=== PATIENT | male | born 1985 | race Caucasian/White ===

== ENCOUNTER → 2019-11-19 | Outpatient (CLI) | payer OTHER ==
[2019-11-19 15:41] LABS: Basophils % (A) 1 %; Eosinophils # (A) 0.3 k/uL (0-0.7); Eosinophils % (A) 4 %; HCT 45.3 % (39.0-53.0); HGB 15.1 gm/dL (13.0-17.5); Lymphocytes # (A) 1.9 k/uL (1.0-4.8); Lymphocytes % (A) 30 %; MCH 29.9 pg (25.0-35.0); MCHC 33.3 g/dL (31.0-37.0); MCV 89.8 fL (80.0-100.0); Mean Platelet Volume 7.4; Monocytes # (A) 0.4 k/uL (0-1.0); Monocytes % (A) 6 %; Neutrophils # (A) 3.5 k/uL (1.3-7.7); Neutrophils % (A) 56 %; Platelet Count 247 k/uL (150-450); RBC 5.04 m/uL (4.30-5.90); RDW 12.5 % (11.5-15.5); WBC 6.3 k/uL (3.8-10.6)
[2019-11-19 16:33] LABS: Erythrocyte Sedimentation Rate 2 mm/hr (0-15)
[2019-11-20 00:41] LABS: Gliadin AB IgA, Deaminated NEGATIVE (NEGATIVE); Gliadin AB IgA, Unit <0.2 U/mL; Gliadin AB IgG, Deaminated NEGATIVE (NEGATIVE)
== END ==
LOC: LABWHC1 14:37
PROVIDERS: ATTEND Internal Medicine Gastroenterology
DX: K58.9 Irritable bowel syndrome, unspecified (principal)
CPT/HCPCS: 36415; 83516; 85025; 85652; 86140

== ENCOUNTER 2021-01-29 18:48 | Inpatient (IN) | payer BC, OTHER ==
[2021-01-29] MEDS ORDERED: ALBUTEROL HFA INHALER INHALATION STA (20:05)
[2021-01-29] MEDS ORDERED: SODIUM CHLORIDE 0.9% 1,000 ML IV STA ×2 (20:05)
[2021-01-29] MEDS ORDERED: DEXAMETHASONE SOD PHOSPHATE 10 MG/ML 1 ML VIAL IV STA (20:06)
--- NOTE | 2021-01-29 20:14 | XR ---
EXAMINATION TYPE: XR chest 2V DATE OF EXAM: 01/29/2021 COMPARISON: NONE HISTORY: Hypoxemia. Short of breath TECHNIQUE: 2 views FINDINGS: There is patchy bilateral infiltrate and atelectasis in the mid and lower lung bryant. Ther e is poor inspiration. Heart size is normal. IMPRESSION: Bilateral pneumonia and atelectasis. Normal heart.
[2021-01-29 21:16] LABS: Basophils % (A) 1 %; Eosinophils % (A) 0 %; HCT 43.2 % (39.0-53.0); HGB 15.7 gm/dL (13.0-17.5); Lymphocytes # (A) 1.3 k/uL (1.0-4.8); Lymphocytes % (A) 17 %; MCH 31.2 pg (25.0-35.0); MCHC 36.3 g/dL (31.0-37.0); Mean Platelet Volume 7.9; Monocytes # (A) 0.4 k/uL (0-1.0); Monocytes % (A) 6 %; Neutrophils # (A) 5.7 k/uL (1.3-7.7); Neutrophils % (A) 75 %; Platelet Count 198 k/uL (150-450); RBC 5.03 m/uL (4.30-5.90); RDW 12.4 % (11.5-15.5); WBC 7.6 k/uL (3.8-10.6)
[2021-01-29] MEDS ORDERED: AZITHROMYCIN 500 MG in SODIUM CHLORIDE 0.9% 250 ML IVPB STA (21:24)
[2021-01-29 21:30] LABS: Partial Thromboplastin Time 29.3 sec (22.0-30.0); Prothrombin Time 10.9 sec (9.0-12.0)
[2021-01-29 21:31] LABS: ALT 44 U/L (4-49); AST 40 U/L (17-59); African American GFR (CKD) >90 (>60 ml/min/1.73 sqM); Albumin 4.5 g/dL (3.5-5.0); Alkaline Phosphatase 48 U/L (38-126); Anion Gap 12 mmol/L; Blood Urea Nitrogen 12 mg/dL (9-20); Calcium 9.3 mg/dL (8.4-10.2); Carbon Dioxide 24 mmol/L (22-30); Chloride 103 mmol/L (98-107); Glucose 112 mg/dL (74-99); Non-African American GFR(CKD) >90 (>60 ml/min/1.73 sqM); Potassium 4.1 mmol/L (3.5-5.1); Sodium 139 mmol/L (137-145); Total Bilirubin 0.8 mg/dL (0.2-1.3); Total Protein 7.9 g/dL (6.3-8.2)
--- NOTE | 2021-01-29 21:52 | ED ---
SOB HPI - General Chief Complaint: Shortness of Breath Stated Complaint: Low o2/sob/cough Time Seen by Provider: 01/29/21 19:54 Source: patient Mode of arrival: ambulatory Limitations: no limitations - History of Present Illness Initial Comments: This 35-year-old white male presents with a complaint of shortness of breath. It is been going on for approximately 10 days. He also has had a cough, diffuse myalgias, fatigue, and decreased appetite. He denies any nausea, vomiting, or diarrhea. He has felt feverish at times as well. The shortness of breath is much worse with any exertion. He states that his was diagnosed with Covid approximately 11 days ago and he had significant exposure to her. He went to an urgent care prior to coming to the emergency department today and they sent him to the emergency department as his oxygen level was low. He apparently had a negative Covid test at the urgent care. He denies any previous similar incidents. There is no leg pain or swelling. There is no history of cardiac pulmonary disease. No history of DVT or PE. No other complaints or modifying factors. - Related Data Home Medications Medication Instructions Recorded Confirmed Acetaminophen Tab [Tylenol] 1,000 mg PO BID PRN 01/29/21 01/29/21 Ibuprofen [Motrin Ib] 800 mg PO BID PRN 01/29/21 01/29/21 guaiFENesin-DM 600/30MG [Mucinex 1 tab PO Q12H PRN 01/29/21 01/29/21 Dm] Allergies Allergy/AdvReac Type Severity Reaction Status Date / Time shellfish derived [Shellfish] Allergy Anaphylaxis Verified 01/29/21 21:30 Review of Systems ROS Statement: Those systems with pertinent positive or pertinent negative responses have been documented in the HPI. ROS Other: All systems not noted in ROS Statement are negative. Past Medical History Past Medical History: GERD/Reflux History of Any Multi-Drug Resistant Organisms: None Reported Past Surgical History: No Surgical Hx Reported Past Anesthesia/Blood Transfusion Reactions: No Reported Reaction Past Psychological History: No Psychological Hx Reported Smoking Status: Never smoker Past Alcohol Use History: Occasional Past Drug Use History: None Reported General Exam - General Exam Comments Initial Comments: GENERAL: The patient is well nourished and well hydrated. VITAL SIGNS: Heart rate, blood pressure, respiratory rate reviewed as recorded in nurse's notes. EYES: Pupils are round and reactive. Extraocular movements are intact. No conjunctival / lid redness or swelling. ENT: No external evidence of injury, swelling, or ecchymosis. Airway is patent. Throat is clear. NECK: Nontender. No swelling or evidence of injury. No subcutaneous emphysema. Trachea is midline. No thyroid mass. HEART: Regular rate and rhythm. Good peripheral pulses. LUNGS/CHEST: Diminished breath sounds bilaterally. No ecchymosis, subcutaneous emphysema, or tenderness. ABDOMEN: Abdomen soft without tenderness. No palpable masses or organomegaly. No peritoneal signs. No abdominal wall swelling or ecchymosis. EXTREMITIES: No extremity tenderness. Normal muscle tone and function. No thoracolumbar tenderness. NEUROLOGIC: Sensation is grossly intact. Cranial nerve exam reveals face is symmetrical, tongue is midline, speech is clear. SKIN: No abrasions or ecchymosis is noted. No induration or masses noted. PSYCHIATRIC: Alert and oriented. Appropriate behavior and judgment. Limitations: no limitations Course Vital Signs 01/29/21 01/29/21 01/29/21 19:30 20:26 20:34 Temperature 98.6 F Pulse Rate 103 H 100 Respiratory 18 24 26 H Rate Blood Pressure 138/86 138/86 O2 Sat by Pulse 89 L 92 L Oximetry Medical Decision Making - Medical Decision Making The patient was seen and examined. All diagnostics were reviewed. He is placed on a pvc monitor and this shows a normal sinus rhythm. EKG was done and shows a normal sinus rhythm at a rate of 95. There is no acute ST-T wave changes noted. The CT intervals 144, QRS duration is 88, and the QTc interval is 459. The chest x-ray was done and shows evidence of bilateral pneumonia in the mid and lower lung bryant. The laboratory overall is unremarkable. His covid test here is negative. Nevertheless, it is felt as though she still likely does have Covid and therefore a confirmatory PCR test is ordered. He will still be treated for the possibility of bacterial pneumonia and he is started on IV Zithromax and Rocephin. He also receives albuterol HFA and IV Decadron. Case is discussed with Dr. Gonzalez and he is agreeable with admission under Dr. Saavedra with pulmonology to consult. Patient is admitted as full admit to telemetry bed. - Lab Data Result diagrams: 01/29/21 20:45 01/29/21 20:45 Lab Results 01/29/21 01/29/21 01/29/21 Range/Units 19:39 20:45 20:45 WBC 7.6 (3.8-10.6) k/uL RBC 5.03 (4.30-5.90) m/uL Hgb 15.7 (13.0-17.5) gm/dL Hct 43.2 (39.0-53.0) % MCV 86.0 (80.0-100.0) fL MCH 31.2 (25.0-35.0) pg MCHC 36.3 (31.0-37.0) g/dL RDW 12.4 (11.5-15.5) % Plt Count 198 (150-450) k/uL MPV 7.9 Neutrophils % 75 % Lymphocytes % 17 % Monocytes % 6 % Eosinophils % 0 % Basophils % 1 % Neutrophils # 5.7 (1.3-7.7) k/uL Lymphocytes # 1.3 (1.0-4.8) k/uL Monocytes # 0.4 (0-1.0) k/uL Eosinophils # 0.0 (0-0.7) k/uL Basophils # 0.0 (0-0.2) k/uL PT 10.9 (9.0-12.0) sec INR 1.0 (<1.2) APTT 29.3 (22.0-30.0) sec Sodium (137-145) mmol/L Potassium (3.5-5.1) mmol/L Chloride (98-107) mmol/L Carbon Dioxide (22-30) mmol/L Anion Gap mmol/L BUN (9-20) mg/dL Creatinine (0.66-1.25) mg/dL Est GFR (CKD-EPI)AfAm (>60 ml/min/1.73 sqM) Est GFR (CKD-EPI)NonAf (>60 ml/min/1.73 sqM) Glucose (74-99) mg/dL Plasma Lactic Acid Ke (0.7-2.0) mmol/L Calcium (8.4-10.2) mg/dL Total Bilirubin (0.2-1.3) mg/dL AST (17-59) U/L ALT (4-49) U/L Alkaline Phosphatase (38-126) U/L Troponin I (0.000-0.034) ng/mL Total Protein (6.3-8.2) g/dL Albumin (3.5-5.0) g/dL Coronavirus (PCR) Not Detected (Not Detectd) 01/29/21 01/29/21 01/29/21 Range/Units 20:45 20:45 20:45 WBC (3.8-10.6) k/uL RBC (4.30-5.90) m/uL Hgb (13.0-17.5) gm/dL Hct (39.0-53.0) % MCV (80.0-100.0) fL MCH (25.0-35.0) pg MCHC (31.0-37.0) g/dL RDW (11.5-15.5) % Plt Count (150-450) k/uL MPV Neutrophils % % Lymphocytes % % Monocytes % % Eosinophils % % Basophils % % Neutrophils # (1.3-7.7) k/uL Lymphocytes # (1.0-4.8) k/uL Monocytes # (0-1.0) k/uL Eosinophils # (0-0.7) k/uL Basophils # (0-0.2) k/uL PT (9.0-12.0) sec INR (<1.2) APTT (22.0-30.0) sec Sodium 139 (137-145) mmol/L Potassium 4.1 (3.5-5.1) mmol/L Chloride 103 (98-107) mmol/L Carbon Dioxide 24 (22-30) mmol/L Anion Gap 12 mmol/L BUN 12 (9-20) mg/dL Creatinine 0.67 (0.66-1.25) mg/dL Est GFR (CKD-EPI)AfAm >90 (>60 ml/min/1.73 sqM) Est GFR (CKD-EPI)NonAf >90 (>60 ml/min/1.73 sqM) Glucose 112 H (74-99) mg/dL Plasma Lactic Acid Ke 0.9 (0.7-2.0) mmol/L Calcium 9.3 (8.4-10.2) mg/dL Total Bilirubin 0.8 (0.2-1.3) mg/dL AST 40 (17-59) U/L ALT 44 (4-49) U/L Alkaline Phosphatase 48 (38-126) U/L Troponin I <0.012 (0.000-0.034) ng/mL Total Protein 7.9 (6.3-8.2) g/dL Albumin 4.5 (3.5-5.0) g/dL Coronavirus (PCR) (Not Detectd) Disposition Clinical Impression: Hypoxia, Bilateral pneumonia, Fatigue, Tachypnea Disposition: ADMITTED IP TO THIS HOSP Condition: Fair Is patient prescribed a controlled substance at d/c from ED?: No Time of Disposition: 22:15 Decision Date: 01/29/21 Decision Time: 22:15
[2021-01-29] MEDS ORDERED: PNEUMONIA PROTOCOL UTILIZED 1 EACH MISC PO PRN (22:16)
[2021-01-29] MEDS ORDERED: ACETAMINOPHEN TAB 500 MG TAB PO PRN (22:20)
[2021-01-29] MEDS ORDERED: IBUPROFEN 600 MG TAB PO PRN (22:21)
[2021-01-29] MEDS ORDERED: ONDANSETRON 4 MG/2 ML VIAL IVP PRN (22:23)
[2021-01-29] MEDS ORDERED: ALBUTEROL HFA INHALER INHALATION SCH (22:30)
[2021-01-30] MEDS: ENOXAPARIN 40 MG/0.4 ML SYRINGE SQ SCH ×2 (00:19→09:36)
[2021-01-30] MEDS: ALBUTEROL HFA INHALER INHALATION SCH ×4 (07:24→19:51)
[2021-01-30] MEDS ORDERED: guaiFENesin-DM 600/30MG 1 EACH TAB.ER.12H PO PRN (09:00)
[2021-01-30] MEDS ORDERED: DEXAMETHASONE SOD PHOSPHATE 10 MG/ML 1 ML VIAL IV SCH (09:00)
--- NOTE | 2021-01-30 11:38 | P.CNPUL ---
History of Present Illness Consult date: 01/30/21 Reason for consult: dyspnea, cough, hypoxemia Chief complaint: Progressive shortness of breath diagnosed: 19 pneumonia about 11 days ago History of present illness: This is a pleasant 35-year-old male who has been found to have positive cocaine pneumonia infection about 11 days ago his also positive around the same time, patient in the last several days have been having progressive increased shortness of breath and decided to come into emergency department, his oxygen saturation was just 89% with respiratory rate of 26, bilateral infiltrates and pneumonia is present, patient is noted to have progressive deterioration oxygen saturation were 90% on 6 L appears to be dropping with the spells of desaturation high flow oxygen initiated on 10 L with that sets are 92%, testing came back negative for Covid 19 pneumonia, however patient has been placed on broad-spectrum antibiotic and Decadron along with anticoagulation Review of Systems All systems: negative Past Medical History Past Medical History: GERD/Reflux History of Any Multi-Drug Resistant Organisms: None Reported Past Surgical History: No Surgical Hx Reported Past Anesthesia/Blood Transfusion Reactions: No Reported Reaction Past Psychological History: No Psychological Hx Reported Smoking Status: Never smoker Past Alcohol Use History: Occasional Past Drug Use History: None Reported Medications and Allergies Home Medications Medication Instructions Recorded Confirmed Type Acetaminophen Tab [Tylenol] 1,000 mg PO BID PRN 01/29/21 01/29/21 History Ibuprofen [Motrin Ib] 800 mg PO BID PRN 01/29/21 01/29/21 History guaiFENesin-DM 600/30MG [Mucinex 1 tab PO Q12H PRN 01/29/21 01/29/21 History Dm] Allergies Allergy/AdvReac Type Severity Reaction Status Date / Time shellfish derived [Shellfish] Allergy Anaphylaxis Verified 01/29/21 21:30 Physical Exam Vitals: Vital Signs Temp Pulse Resp BP Pulse Ox 01/30/21 10:52 92 L 01/30/21 09:34 90 20 121/83 89 L 01/30/21 08:00 99 20 129/84 88 L 01/30/21 07:46 96 18 129/88 88 L 01/30/21 06:00 84 23 128/77 90 L 01/30/21 05:05 89 L 01/30/21 04:05 98.4 F 97 20 124/78 91 L 01/30/21 00:22 102 H 20 151/86 91 L 01/29/21 23:07 93 22 170/87 92 L 01/29/21 20:34 26 H 01/29/21 20:26 100 24 138/86 92 L 01/29/21 19:30 98.6 F 103 H 18 138/86 89 L Intake and Output 01/29/21 01/30/21 01/30/21 22:59 06:59 14:59 Other: Weight 145.15 kg - Constitutional General appearance: average body habitus, cooperative, disheveled - EENT Eyes: EOMI, PERRLA Ears: bilateral: normal - Neck Carotids: bilateral: upstroke normal Thyroid: bilateral: normal size - Respiratory Respiratory: bilateral: CTA - Cardiovascular Rhythm: regular Heart sounds: normal: S1, S2 - Gastrointestinal General gastrointestinal: soft - Neurologic Neurologic: CNII-XII intact - Musculoskeletal Musculoskeletal: gait normal, generalized weakness, strength equal bilaterally - Psychiatric Psychiatric: A&O x's 3, appropriate affect, intact judgment & insight Results - Laboratory Findings CBC and BMP: 01/29/21 20:45 01/29/21 20:45 PT/INR, D-dimer PT 10.9 sec (9.0-12.0) 01/29/21 20:45 INR 1.0 (<1.2) 01/29/21 20:45 Abnormal lab findings: Abnormal Labs 01/29/21 20:45 Glucose 112 H - Diagnostic Findings Chest x-ray: report reviewed, image reviewed Assessment and Plan Assessment: Acute hypoxic respiratory failure Presumed covid 19 pneumonia Morbid obesity Plan: Continue broad-spectrum antibiotics Deep breathing exercises incentive spirometry High flow oxygen to keep saturation above 86-88% Prone positioning is possible Anticoagulation IV Decadron With a bronchiolitis per clinical response of the patient Time with Patient: Greater than 30
[2021-01-30] MEDS: CHOLECALCIFEROL 25 MCG (1000 IU) TABLET PO SCH (17:18)
[2021-01-30] MEDS: ASCORBIC ACID 500 MG TAB PO SCH (17:18)
[2021-01-30] MEDS: ZINC SULFATE 220 MG CAP PO SCH (17:18)
[2021-01-30 17:43] LABS: C Reactive Protein 35.7 mg/L (<10.0)
--- NOTE | 2021-01-30 19:15 | P.HPIM ---
History of Present Illness H&P Date: 01/30/21 Chief Complaint: Short of breath History of presenting complaint: This is a pleasant 35-year-old patient of Dr. Joss Padron. On January 18 patient was diagnosed with COVID 19 infection. Patient for 10 days been having cold-like symptoms. That was initial presentation and subsequently patient developed significant headache bodyache shortness of breath and not loses sense of taste or smell. There is no diarrhea. Poor appetite. Tired rundown. Initial pulse ox on in the ER was 89%. Pulmonary was consulted admitted Review of systems: GEN.: Tired decreased appetite EYES: None HEENT: None NECK: None RESPIRATORY: As above CARDIOVASCULAR: None GASTROINTESTINAL: None GENITOURINARY: None MUSCULOSKELETAL: Aches and pains LYMPHATICS: None HEMATOLOGICAL: None PSYCHIATRY: None NEUROLOGICAL: None Past medical history to include: GERD Social history: . 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 No smoking Family history: Reviewed, noncontributory to presentation Physical examination: VITAL SIGNS: 98.6, 103, 18, 138/86, 99% on room air upon presentation GENERAL: BMI of 40, sitting up, on the bed short of breath. EYES: Pupils equal. Conjunctiva normal. HEENT: External appearance of nose and ears normal, oral cavity grossly normal. NECK: JVD not raised; masses not palpable. HEART: First and second heart sounds are normal; no edema. LUNGS: Respiratory rate increased, not able to speak in full sentences, dimin ished breath sounds. ABDOMEN: Soft, nontender, liver spleen not palpable, no masses palpable. PSYCH: Alert and oriented x3; mood and affect tiredl. NEUROLOGICAL: Cranial nerves grossly intact; no facial asymmetry, power and sensation grossly intact. LYMPHATICS: No lymph nodes palpable in the axilla and neck INVESTIGATIONS, reviewed in the clinical context: WBC 7.6 hemoglobin 15.7 platelets 198 potassium 4.1 creatinine 0.67 D-dimer 1.03 LDH 939 CRP 35.7 EKG tracing personally reviewed by me-sinus rhythm, poor R-wave progression Chest x-ray film personally reviewed by me-bilateral infiltrates Coronavirus [PCR]-not detected Influenza type A type B both negative Assessment and plan: -Acute bilateral COVID 19 pneumonia. Patient's history and physical and lab work is strongly compatible with the same. Given the patient's is also diagnosed with COVID 19 pneumonia. Patient is a elevated d-dimer, LDH, CRP. Pulmonary was consulted. We will have a repeat COVID 19 testing done. Given the Heiss strong clinical suspicion patient be started on dexamethasone, subcu Lovenox, and supplemented vitamin C vitamin D zinc and Pepcid. -Acute hypoxic respiratory failure secondary to pneumonia Patient is currently on 4 L of nasal cannula. -Morbid obesity BMI 40 Weight loss measures and follow up with PCP upon discharge Pulmonary consulted. Repeat COVID 19 testing ordered. Other medications to continue. Patient empirically is on antibiotics for now until the diagnosis is confirmed Given the complexity and severity of patient's condition expect the patient to be in the hospital at least for 2 overnights Past Medical History Past Medical History: GERD/Reflux History of Any Multi-Drug Resistant Organisms: None Reported Past Surgical History: No Surgical Hx Reported Past Anesthesia/Blood Transfusion Reactions: No Reported Reaction Past Psychological History: No Psychological Hx Reported Smoking Status: Never smoker Past Alcohol Use History: Occasional Past Drug Use History: None Reported - Past Family History Father Additional Family Medical History / Comment(s): Hypoglycemia Mother History Unknown: Yes Medications and Allergies Home Medications Medication Instructions Recorded Confirmed Type Acetaminophen Tab [Tylenol] 1,000 mg PO BID PRN 01/29/21 01/29/21 History Ibuprofen [Motrin Ib] 800 mg PO BID PRN 01/29/21 01/29/21 History guaiFENesin-DM 600/30MG [Mucinex 1 tab PO Q12H PRN 01/29/21 01/29/21 History Dm] Allergies Allergy/AdvReac Type Severity Reaction Status Date / Time shellfish derived [Shellfish] Allergy Anaphylaxis Verified 01/29/21 21:30 Physical Exam Vitals: Vital Signs Temp Pulse Resp BP Pulse Ox 01/30/21 09:34 90 20 121/83 89 L 01/30/21 08:00 99 20 129/84 88 L 01/30/21 07:46 96 18 129/88 88 L 01/30/21 06:00 84 23 128/77 90 L 01/30/21 05:05 89 L 01/30/21 04:05 98.4 F 97 20 124/78 91 L 01/30/21 00:22 102 H 20 151/86 91 L 01/29/21 23:07 93 22 170/87 92 L 01/29/21 20:34 26 H 01/29/21 20:26 100 24 138/86 92 L 01/29/21 19:30 98.6 F 103 H 18 138/86 89 L Intake and Output 01/29/21 01/30/21 01/30/21 22:59 06:59 14:59 Other: Weight 145.15 kg Results CBC & Chem 7: 01/29/21 20:45 01/29/21 20:45 Labs: Abnormal Lab Results - Last 24 Hours (Table) 01/29/21 Range/Units 20:45 Glucose 112 H (74-99) mg/dL
[2021-01-30 20:46] LABS: Glucose,Whole Blood 120 mg/dL (75-99)
[2021-01-30] MEDS: FAMOTIDINE 20 MG TAB PO SCH (20:52)
[2021-01-30] MEDS ORDERED: AZITHROMYCIN 500 MG in SODIUM CHLORIDE 0.9% 250 ML IVPB SCH (21:00)
[2021-01-31 05:57] LABS: Glucose,Whole Blood 115 mg/dL (75-99)
[2021-01-31] MEDS: ALBUTEROL HFA INHALER INHALATION SCH ×4 (08:23→19:46)
[2021-01-31] MEDS: DEXAMETHASONE SOD PHOSPHATE 10 MG/ML 1 ML VIAL IV SCH (08:43)
[2021-01-31] MEDS: ZINC SULFATE 220 MG CAP PO SCH (08:44)
[2021-01-31] MEDS: ENOXAPARIN 40 MG/0.4 ML SYRINGE SQ SCH (08:44)
[2021-01-31] MEDS: CHOLECALCIFEROL 25 MCG (1000 IU) TABLET PO SCH (08:44)
[2021-01-31] MEDS: ASCORBIC ACID 500 MG TAB PO SCH (08:44)
[2021-01-31] MEDS: FAMOTIDINE 20 MG TAB PO SCH ×2 (08:44→20:22)
--- NOTE | 2021-01-31 11:16 | P.PN ---
Subjective Progress Note Date: 01/31/21 Principal diagnosis: Acute hypoxic respiratory failure Presumed covid 19 pneumonia Morbid obesity 01/31/2021, patient seen eval examined during the rounds, shortness of breath s till there, patient remains on 10 L oxygen, ongoing shortness of breath is present, discussed with primary service and patient at length both agreeable for trial of REMdesivir will put the order him a patient instructed to do deep breathing exercises incentive spirometry as well as prone positioning as much as possible This is a pleasant 35-year-old male who has been found to have positive cocaine pneumonia infection about 11 days ago his also positive around the same time, patient in the last several days have been having progressive increased shortness of breath and decided to come into emergency department, his oxygen saturation was just 89% with respiratory rate of 26, bilateral infiltrates and pneumonia is present, patient is noted to have progressive deterioration oxygen saturation were 90% on 6 L appears to be dropping with the spells of desaturation high flow oxygen initiated on 10 L with that sets are 92%, testing came back negative for Covid 19 pneumonia, however patient has been placed on broad-spectrum antibiotic and Decadron along with anticoagulation Objective - Vital Signs Vital signs: Vital Signs Temp 98.6 F 01/31/21 08:00 Pulse 80 01/31/21 08:00 Resp 22 01/31/21 08:00 BP 131/75 01/31/21 08:00 Pulse Ox 89 L 01/31/21 09:00 Intake & Output 01/30/21 01/31/21 01/31/21 18:59 06:59 18:59 Intake Total 240 Output Total 410 240 Balance -410 0 Weight 145.15 kg 143.5 kg Intake: Oral 240 Output: Urine 410 240 Other: Voiding Method Urinal # Voids 1 - Exam - Constitutional General appearance: average body habitus, cooperative, disheveled - EENT Eyes: EOMI, PERRLA Ears: bilateral: normal - Neck Carotids: bilateral: upstroke normal Thyroid: bilateral: normal size - Respiratory Respiratory: bilateral: CTA - Cardiovascular Rhythm: regular Heart sounds: normal: S1, S2 - Gastrointestinal General gastrointestinal: soft - Neurologic Neurologic: CNII-XII intact - Musculoskeletal Musculoskeletal: gait normal, generalized weakness, strength equal bilaterally - Psychiatric Psychiatric: A&O x's 3, appropriate affect, intact judgment & insight - Labs CBC & Chem 7: 01/29/21 20:45 01/29/21 20:45 Labs: Abnormal Lab Results - Last 24 Hours (Table) 01/29/21 01/30/21 01/30/21 Range/Units 23:07 16:27 16:27 D-Dimer 1.03 H (<0.60) mg/L FEU POC Glucose (mg/dL) (75-99) mg/dL Lactate Dehydrogenase 939 H (313-618) U/L C-Reactive Protein 35.7 H (<10.0) mg/L Coronavirus (PCR) Detected A (Not Detected) 01/30/21 01/31/21 Range/Units 20:45 05:56 D-Dimer (<0.60) mg/L FEU POC Glucose (mg/dL) 120 H 115 H (75-99) mg/dL Lactate Dehydrogenase (313-618) U/L C-Reactive Protein (<10.0) mg/L Coronavirus (PCR) (Not Detected) Microbiology - Last 24 Hours (Table) 01/29/21 20:45 Blood Culture - Preliminary Blood No Growth after 24 hours Assessment and Plan Assessment: Acute hypoxic respiratory failure Presumed covid 19 pneumonia Morbid obesity Plan: Five-day therapeutic trial of IV REMdesivir Continue broad-spectrum antibiotics Deep breathing exercises incentive spirometry High flow oxygen to keep saturation above 86-88% Prone positioning is possible Anticoagulation IV Decadron Further recommendations pending per clinical response of the patient Time with Patient: Greater than 30
[2021-01-31 12:27] LABS: Glucose,Whole Blood 120 mg/dL (75-99)
[2021-01-31] MEDS ORDERED: REMDESIVIR 200 MG in SODIUM CHLORIDE 0.9% 250 ML IVPB ONE (13:00)
[2021-01-31 16:41] LABS: Glucose,Whole Blood 136 mg/dL (75-99)
--- NOTE | 2021-01-31 20:01 | P.PN ---
Progress Note - Text Progress Note Date: 01/31/21 Chief Complaint: Short of breath History of presenting complaint: This is a pleasant 35-year-old patient of Dr. Joss Padron. On January 18 patient was diagnosed with COVID 19 infection. Patient for 10 days been having cold-like symptoms. That was initial presentation and subsequently patient developed significant headache bodyache shortness of breath and not loses sense of taste or smell. There is no diarrhea. Poor appetite. Tired rundown. Initial pulse ox on in the ER was 89%. Pulmonary was consulted admitted Admitted with bilateral COVID 19 pneumonia, acute hypoxic respiratory failure. Started on 4 L of nasal cannula. Placed on dexamethasone 6 Lovenox. Repeat Coronavirus PCR testing came back positive Today: Sitting up in bed. Short of breath. On 8 L of nasal cannula. Started on Remdesivir. A bit tired Review of systems: Was done for constitutional, cardiovascular, GI, pulmonary. relevant finding as above Active Medications Acetaminophen (Acetaminophen Tab 500 Mg Tab) 1,000 mg PO Q6H PRN PRN Reason: Fever Albuterol Sulfate (Albuterol Hfa Inhaler) 2 puff INHALATION RT-QID [facility] Last Admin: 01/31/21 19:46 Dose: 2 puff Documented by: Ascorbic Acid (Ascorbic Acid 500 Mg Tab) 1,000 mg PO DAILY [facility] Last Admin: 01/31/21 08:44 Dose: 1,000 mg Documented by: Cholecalciferol (Cholecalciferol 25 Mcg (1000 Iu) Tablet) 100 mcg PO DAILY [facility] Last Admin: 01/31/21 08:44 Dose: 100 mcg Documented by: Dexamethasone Sodium Phosphate (Dexamethasone Sod Phosphate 10 Mg/Ml 1 Ml Vial) 6 mg IV DAILY [facility] Last Admin: 01/31/21 08:43 Dose: 6 mg Documented by: Enoxaparin Sodium (Enoxaparin 40 Mg/0.4 Ml Syringe) 40 mg SQ DAILY [facility] Last Admin: 01/31/21 08:44 Dose: 40 mg Documented by: Famotidine (Famotidine 20 Mg Tab) 20 mg PO BID [facility] Last Admin: 01/31/21 08:44 Dose: 20 mg Documented by: Guaifenesin/Dextromethorphan (Guaifenesin-Dm 600/30mg 1 Each Tab.Er.12h) 1 each PO Q12H PRN PRN Reason: Cold Symptoms Ceftriaxone Sodium 2 gm/ (Sodium Chloride) 50 mls @ 100 mls/hr IVPB Q24H [facility] Last Admin: 01/31/21 00:39 Dose: 100 mls/hr Documented by: Azithromycin 500 mg/ Sodium (Chloride) 250 mls @ 250 mls/hr IVPB DAILY@2100 [facility] Last Admin: 01/30/21 20:56 Dose: 250 mls/hr Documented by: Remdesivir 100 mg/ Sodium (Chloride) 250 mls @ 250 mls/hr IVPB DAILY@1300 [facility] Stop: 02/04/21 13:59 Ibuprofen (Ibuprofen 600 Mg Tab) 600 mg PO Q6H PRN PRN Reason: Fever Melatonin (Melatonin 5 Mg Tablet) 10 mg PO HS [facility] Miscellaneous Information (Pneumonia Protocol Utilized 1 Each Misc) 1 each PO ONCE PRN PRN Reason: Per Protocol Ondansetron HCl (Ondansetron 4 Mg/2 Ml Vial) 4 mg IVP Q4H PRN PRN Reason: Nausea Zinc Sulfate (Zinc Sulfate 220 Mg Cap) 220 mg PO DAILY [facility] Last Admin: 01/31/21 08:44 Dose: 220 mg Documented by: Past medical history to include: GERD Social history: . 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 Alcohol occasionally. No smoking Family history: Reviewed, noncontributory to presentation Physical examination: VITAL SIGNS: 99.2, 80, 20, 138 with 72, 93% on 8 L GENERAL:, sitting up, on the bed short of breath. LUNGS: Respiratory rate increased, NEUROLOGICAL: Cranial nerves grossly intact. Moving all 4 limbs PSYCH: Alert and oriented x3; mood and affect tiredl. Rest of exam per pulmonary and nursing INVESTIGATIONS, reviewed in the clinical context: January 31: Pro-calcitonin 0.04 WBC 7.6 hemoglobin 15.7 platelets 198 potassium 4.1 creatinine 0.67 D-dimer 1.03 LDH 939 CRP 35.7 EKG tracing personally reviewed by me-sinus rhythm, poor R-wave progression Chest x-ray film personally reviewed by me-bilateral infiltrates Coronavirus [PCR]-not detected Influenza type A type B both negative Assessment and plan: -Acute bilateral COVID 19 pneumonia.-Slow to respond on dexamethasone, subcu Lovenox, and supplemented vitamin C vitamin D zinc and Pepcid. Remdesivir is started today -Acute hypoxic respiratory failure secondary to COVID 19 worsening Patient is currently on 8 L of nasal cannula. -Morbid obesity BMI 40 Weight loss measures and follow up with PCP upon discharge Care was discussed with the patient. Impression sitting up in a chair and use the incentive spirometry. Started on Remdesivir. Will DC azithromycin and ceftriaxone. Patient's pro-calcitonin 0.04
[2021-01-31 20:20] LABS: Glucose,Whole Blood 121 mg/dL (75-99)
[2021-01-31] MEDS: MELATONIN 5 MG TABLET PO SCH (20:22)
[2021-02-01 05:37] LABS: Glucose,Whole Blood 114 mg/dL (75-99)
[2021-02-01] MEDS: ZINC SULFATE 220 MG CAP PO SCH (08:35)
[2021-02-01] MEDS: FAMOTIDINE 20 MG TAB PO SCH ×2 (08:36→22:37)
[2021-02-01] MEDS: DEXAMETHASONE SOD PHOSPHATE 10 MG/ML 1 ML VIAL IV SCH (08:36)
[2021-02-01] MEDS: ASCORBIC ACID 500 MG TAB PO SCH (08:36)
[2021-02-01] MEDS: ENOXAPARIN 40 MG/0.4 ML SYRINGE SQ SCH (08:36)
[2021-02-01] MEDS: CHOLECALCIFEROL 25 MCG (1000 IU) TABLET PO SCH (08:36)
[2021-02-01] MEDS: ALBUTEROL HFA INHALER INHALATION SCH ×4 (08:38→21:00)
[2021-02-01 11:39] LABS: Glucose,Whole Blood 112 mg/dL (75-99)
[2021-02-01] MEDS ORDERED: REMDESIVIR 100 MG in SODIUM CHLORIDE 0.9% 250 ML IVPB SCH (13:00)
--- NOTE | 2021-02-01 15:16 | P.PN ---
Subjective Progress Note Date: 02/01/21 Principal diagnosis: Acute hypoxic respiratory failure Presumed covid 19 pneumonia Morbid obesity 02/01/2021, patient seen eval examined during the rounds labs reviewed medicatio ns reviewed care plan discussed, respiratory status slightly better, patient is on 4 L oxygen shortness of breath significantly improved patient is on usual therapy of COVID-19 pneumonia 01/31/2021, patient seen eval examined during the rounds, shortness of breath still there, patient remains on 10 L oxygen, ongoing shortness of breath is present, discussed with primary service and patient at length both agreeable for trial of REMdesivir will put the order him a patient instructed to do deep br eathing exercises incentive spirometry as well as prone positioning as much as possible This is a pleasant 35-year-old male who has been found to have positive cocaine pneumonia infection about 11 days ago his also positive around the same time, patient in the last several days have been having progressive increased shortness of breath and decided to come into emergency department, his oxygen saturation was just 89% with respiratory rate of 26, bilateral infiltrates and pneumonia is present, patient is noted to have progressive deterioration oxygen saturation were 90% on 6 L appears to be dropping with the spells of desaturation high flow oxygen initiated on 10 L with that sets are 92%, testing came back negative for Covid 19 pneumonia, however patient has been placed on broad-spectrum antibiotic and Decadron along with anticoagulation Objective - Vital Signs Vital signs: Vital Signs Temp 97.3 F L 02/01/21 11:20 Pulse 73 02/01/21 11:20 Resp 16 02/01/21 11:20 BP 110/72 02/01/21 11:20 Pulse Ox 92 L 02/01/21 11:20 Intake & Output 01/31/21 02/01/21 02/01/21 18:59 06:59 18:59 Intake Total 1200 360 Output Total 1340 280 250 Balance -140 -280 110 Weight 144 kg Intake: Oral 1200 360 Output: Urine 1340 280 250 Other: # Voids 1 - Exam - Constitutional General appearance: average body habitus, cooperative, disheveled - EENT Eyes: EOMI, PERRLA Ears: bilateral: normal - Neck Carotids: bilateral: upstroke normal Thyroid: bilateral: normal size - Respiratory Respiratory: bilateral: CTA - Cardiovascular Rhythm: regular Heart sounds: normal: S1, S2 - Gastrointestinal General gastrointestinal: soft - Neurologic Neurologic: CNII-XII intact - Musculoskeletal Musculoskeletal: gait normal, generalized weakness, strength equal bilaterally - Psychiatric Psychiatric: A&O x's 3, appropriate affect, intact judgment & insight - Labs CBC & Chem 7: 01/29/21 20:45 01/29/21 20:45 Labs: Abnormal Lab Results - Last 24 Hours (Table) 01/31/21 01/31/21 01/31/21 Range/Units 16:39 20:19 20:39 D-Dimer (<0.60) mg/L FEU POC Glucose (mg/dL) 136 H 121 H (75-99) mg/dL Lactate Dehydrogenase 859 H (313-618) U/L 02/01/21 02/01/21 02/01/21 Range/Units 05:36 09:44 11:37 D-Dimer 0.74 H (<0.60) mg/L FEU POC Glucose (mg/dL) 114 H 112 H (75-99) mg/dL Lactate Dehydrogenase (313-618) U/L Microbiology - Last 24 Hours (Table) 01/29/21 20:45 Blood Culture - Preliminary Blood No Growth after 48 hours Assessment and Plan Assessment: Acute hypoxic respiratory failure Presumed covid 19 pneumonia Morbid obesity Plan: Five-day therapeutic trial of IV REMdesivir Continue broad-spectrum antibiotics Deep breathing exercises incentive spirometry Continue to taper oxygen down as tolerated Prone positioning is possible Anticoagulation IV Decadron Further recommendations pending per clinical response of the patient Time with Patient: Greater than 30
[2021-02-01 16:41] LABS: Glucose,Whole Blood 114 mg/dL (75-99)
[2021-02-01 19:56] LABS: Glucose,Whole Blood 163 mg/dL (75-99)
--- NOTE | 2021-02-01 21:44 | P.PN ---
Progress Note - Text Progress Note Date: 02/01/21 Chief Complaint: Short of breath History of presenting complaint: This is a pleasant 35-year-old patient of Dr. Joss Padron. On January 18 patient was diagnosed with COVID 19 infection. Patient for 10 days been having cold-like symptoms. That was initial presentation and subsequently patient developed significant headache bodyache shortness of breath and not loses sense of taste or smell. There is no diarrhea. Poor appetite. Tired rundown. Initial pulse ox on in the ER was 89%. Pulmonary was consulted admitted Admitted with bilateral COVID 19 pneumonia, acute hypoxic respiratory failure. Started on 4 L of nasal cannula. Placed on dexamethasone 6 Lovenox. Repeat Coronavirus PCR testing came back positive Today: Feeling better. Sitting up in a chair. Oral intake better. Less short of breath. On 4 L. Review of systems: Was done for constitutional, cardiovascular, GI, pulmonary. relevant finding as above Active Medications Acetaminophen (Acetaminophen Tab 500 Mg Tab) 1,000 mg PO Q6H PRN PRN Reason: Fever Albuterol Sulfate (Albuterol Hfa Inhaler) 2 puff INHALATION RT-QID [facility] Last Admin: 02/01/21 21:00 Dose: 2 puff Documented by: Ascorbic Acid (Ascorbic Acid 500 Mg Tab) 1,000 mg PO DAILY [facility] Last Admin: 02/01/21 08:36 Dose: 1,000 mg Documented by: Cholecalciferol (Cholecalciferol 25 Mcg (1000 Iu) Tablet) 100 mcg PO DAILY [facility] Last Admin: 02/01/21 08:36 Dose: 100 mcg Documented by: Dexamethasone Sodium Phosphate (Dexamethasone Sod Phosphate 10 Mg/Ml 1 Ml Vial) 6 mg IV DAILY [facility] Last Admin: 02/01/21 08:36 Dose: 6 mg Documented by: Enoxaparin Sodium (Enoxaparin 40 Mg/0.4 Ml Syringe) 40 mg SQ DAILY [facility] Last Admin: 02/01/21 08:36 Dose: 40 mg Documented by: Famotidine (Famotidine 20 Mg Tab) 20 mg PO BID [facility] Last Admin: 02/01/21 08:36 Dose: 20 mg Documented by: Guaifenesin/Dextromethorphan (Guaifenesin-Dm 600/30mg 1 Each Tab.Er.12h) 1 each PO Q12H PRN PRN Reason: Cold Symptoms Remdesivir 100 mg/ Sodium (Chloride) 250 mls @ 250 mls/hr IVPB DAILY@1300 [facility] Stop: 02/04/21 13:59 Last Admin: 02/01/21 14:25 Dose: 250 mls/hr Documented by: Ibuprofen (Ibuprofen 600 Mg Tab) 600 mg PO Q6H PRN PRN Reason: Fever Melatonin (Melatonin 5 Mg Tablet) 10 mg PO HS [facility] Last Admin: 01/31/21 20:22 Dose: 10 mg Documented by: Miscellaneous Information (Pneumonia Protocol Utilized 1 Each [facility]) 1 each PO ONCE PRN PRN Reason: Per Protocol Ondansetron HCl (Ondansetron 4 Mg/2 Ml Vial) 4 mg IVP Q4H PRN PRN Reason: Nausea Zinc Sulfate (Zinc Sulfate 220 Mg Cap) 220 mg PO DAILY [facility] Last Admin: 02/01/21 08:35 Dose: 220 mg Documented by: Past medical history to include: GERD Social history: . 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 Alcohol occasionally. No smoking Family history: Reviewed, noncontributory to presentation Physical examination: VITAL SIGNS: 97.3, 73, 16, 110/72, 92% on 4 L GENERAL:, sitting up, on a chair, eating LUNGS: Respiratory rate increased, NEUROLOGICAL: Cranial nerves grossly intact. Moving all 4 limbs PSYCH: Alert and oriented x3; mood and affect tiredl. Rest of exam per pulmonary and nursing INVESTIGATIONS, reviewed in the clinical context: February 01: D-dimer 0.74 CRP 8.8 January 31: Pro-calcitonin 0.04 WBC 7.6 hemoglobin 15.7 platelets 198 potassium 4.1 creatinine 0.67 D-dimer 1.03 LDH 939 CRP 35.7 EKG tracing personally reviewed by me-sinus rhythm, poor R-wave progression Chest x-ray film personally reviewed by me-bilateral infiltrates Coronavirus [PCR]-not detected Influenza type A type B both negative Assessment and plan: -Acute bilateral COVID 19 pneumonia.-Improving on dexamethasone, subcu Lovenox, and supplemented vitamin C vitamin D zinc and Pepcid. Remdesivir -Acute hypoxic respiratory failure secondary to COVID 19 worsening Patient is currently on for L of nasal cannula. -Morbid obesity BMI 40 Weight loss measures and follow up with PCP upon discharge Continue current medication. Plan. Improving.
[2021-02-01] MEDS: MELATONIN 5 MG TABLET PO SCH (22:38)
[2021-02-02 06:22] LABS: Glucose,Whole Blood 103 mg/dL (75-99)
[2021-02-02 08:51] VITALS: TEMP 98
[2021-02-02] MEDS: ZINC SULFATE 220 MG CAP PO SCH (08:52)
[2021-02-02] MEDS: ASCORBIC ACID 500 MG TAB PO SCH (08:52)
[2021-02-02] MEDS: CHOLECALCIFEROL 25 MCG (1000 IU) TABLET PO SCH (08:52)
[2021-02-02] MEDS: FAMOTIDINE 20 MG TAB PO SCH (08:52)
[2021-02-02] MEDS: DEXAMETHASONE SOD PHOSPHATE 10 MG/ML 1 ML VIAL IV SCH (08:53)
[2021-02-02] MEDS: ENOXAPARIN 40 MG/0.4 ML SYRINGE SQ SCH (08:53)
[2021-02-02] MEDS: ALBUTEROL HFA INHALER INHALATION SCH ×3 (09:18→15:38)
[2021-02-02 11:44] LABS: Glucose,Whole Blood 132 mg/dL (75-99)
[2021-02-02 12:27] VITALS: BP 143/74; PULSE 75
[2021-02-02 13:48] VITALS: RESP 16
--- NOTE | 2021-02-03 00:27 | P.DS ---
Providers Date of admission: 01/29/21 22:23 Expected date of discharge: 02/02/21 Attending physician: Tj Saavedra Consults: 01/29/21 22:16 Consult Physician Routine Consulting Provider: Johnathan Gonzalez Consult Reason/Comments: pneumonia, hypoxia Do you want consulting provider notified?: Already Contacted Primary care physician: Joss [facility] Course: Chief Complaint: Short of breath History of presenting complaint: This is a pleasant 35-year-old patient of Dr. Joss Padron. On January 18 patient was diagnosed with COVID 19 infection. Patient for 10 days been having cold-like symptoms. That was initial presentation and subsequently patient developed significant headache bodyache shortness of breath and not loses sense of taste or smell. There is no diarrhea. Poor appetite. Tired rundown. Initial pulse ox on in the ER was 89%. Pulmonary was consulted admitted Admitted with bilateral COVID 19 pneumonia, acute hypoxic respiratory failure. Started on 4 L of nasal cannula. Placed on dexamethasone 6 Lovenox. Repeat Coronavirus PCR testing came back positive Today: Patient is continued to do well. Patient taken off the oxygen. 96% room air. Eating well. No respiratory symptoms. Discussed with the patient Consultation: Dr. Nesha Gonzalez from pulmonary Past medical history to include: GERD Social history: . 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 Moving all 4 limbs PSYCH: Alert and oriented x3; mood and affect tiredl. Rest of exam per pulmonary and nursing INVESTIGATIONS, reviewed in the clinical context: February 02: D-dimer 0.73 LDH 757 CRP 6.7 February 01: D-dimer 0.74 CRP 8.8 January 31: Pro-calcitonin 0.04 WBC 7.6 hemoglobin 15.7 platelets 198 potassium 4.1 creatinine 0.67 D-dimer 1.03 LDH 939 CRP 35.7 EKG tracing personally reviewed by me-sinus rhythm, poor R-wave progression Chest x-ray film personally reviewed by me-bilateral infiltrates Coronavirus [PCR]-not detected Influenza type A type B both negative Assessment and plan: -Acute bilateral COVID 19 pneumonia.-Improved on dexamethasone, subcu Lovenox, and supplemented vitamin C vitamin D zinc and Pepcid. Remdesivir . Steroids discontinued before DC. Prophylactic dose of xarelto -Acute hypoxic respiratory failure secondary to COVID 19 improved Now 96% on room air -Morbid obesity BMI 40 Weight loss measures and follow up with PCP upon discharge Disposition: Home Patient Condition at Discharge: Fair Plan - Discharge Summary Discharge Rx Participant: No New Discharge Prescriptions: New Rivaroxaban [Xarelto] 2.5 mg PO DAILY #14 tablet Zinc Sulfate [Orazinc] 220 mg PO DAILY #30 cap Famotidine [Pepcid] 20 mg PO BID #30 tab Ascorbic Acid [Vitamin C] 1,000 mg PO DAILY #60 tab Cholecalciferol [Vitamin D3 (25 Mcg = 1000 Iu)] 100 mcg PO DAILY #100 tablet Continue Acetaminophen Tab [Tylenol] 1,000 mg PO BID PRN PRN Reason: Fever And/ Or Pain Discontinued guaiFENesin-DM 600/30MG [Mucinex Dm] 1 tab PO Q12H PRN PRN Reason: Cold Symptoms Ibuprofen [Motrin Ib] 800 mg PO BID PRN PRN Reason: Fever And/ Or Pain Discharge Medication List Acetaminophen Tab [Tylenol] 1,000 mg PO BID PRN 01/29/21 [History] Ascorbic Acid [Vitamin C] 1,000 mg PO DAILY #60 tab 02/02/21 [Rx] Cholecalciferol [Vitamin D3 (25 Mcg = 1000 Iu)] 100 mcg PO DAILY #100 tablet 02/02/21 [Rx] Famotidine [Pepcid] 20 mg PO BID #30 tab 02/02/21 [Rx] Rivaroxaban [Xarelto] 2.5 mg PO DAILY #14 tablet 02/02/21 [Rx] Zinc Sulfate [Orazinc] 220 mg PO DAILY #30 cap 02/02/21 [Rx] Follow up Appointment(s)/Referral(s): Joss Ramirez MD [Primary Care Provider] - 1 Week (Office will call you with appointment date & time) Johnathan Gonzalez MD [STAFF PHYSICIAN] - 1 Week (Please call during normal business hours to make appointment) Patient Instructions/Handouts: Coronavirus Disease 2019 (COVID-19) Discharge Disposition: HOME SELF-CARE
--- NOTE | 2021-02-03 11:43 | P.PN ---
Subjective Progress Note Date: 02/02/21 Principal diagnosis: Acute hypoxic respiratory failure Presumed covid 19 pneumonia Morbid obesity 02/02/2021, patient seen eval examined during the rounds labs reviewed medicatio ns reviewed care plan discussed, respiratory status improved, patient has been on room air 96%,breathing comfortably denies any chest pain, agree with discharge planning on oral Decadron follow-up in outpatient basis 02/01/2021, patient seen eval examined during the rounds labs reviewed medications reviewed care plan discussed, respiratory status slightly better, patient is on 4 L oxygen shortness of breath significantly improved patient is on usual therapy of COVID-19 pneumonia 01/31/2021, patient seen eval examined during the rounds, shortness of breath still there, patient remains on 10 L oxygen, ongoing shortness of breath is present, discussed with primary service and patient at length both agreeable for trial of REMdesivir will put the order him a patient instructed to do deep yuliya thing exercises incentive spirometry as well as prone positioning as much as possible This is a pleasant 35-year-old male who has been found to have positive cocaine pneumonia infection about 11 days ago his also positive around the same time, patient in the last several days have been having progressive increased shortness of breath and decided to come into emergency department, his oxygen saturation was just 89% with respiratory rate of 26, bilateral infiltrates and pneumonia is present, patient is noted to have progressive deterioration oxygen saturation were 90% on 6 L appears to be dropping with the spells of desaturation high flow oxygen initiated on 10 L with that sets are 92%, testing came back negative for Covid 19 pneumonia, however patient has been placed on broad-spectrum antibiotic and Decadron along with anticoagulation Objective - Vital Signs Vital signs: Vital Signs Temp 98 F 02/02/21 08:49 Pulse 75 02/02/21 13:50 Resp 16 02/02/21 13:50 BP 143/74 02/02/21 11:30 Pulse Ox 96 02/02/21 13:48 Intake & Output 02/01/21 02/02/21 02/02/21 18:59 06:59 18:59 Intake Total 800 472 Output Total 650 1250 Balance 150 -1250 472 Weight 144 kg Intake: Oral 800 472 Output: Urine 650 1250 Other: Voiding Method Urinal Urinal # Voids 1 # Bowel Movements 2 - Exam - Constitutional General appearance: average body habitus, cooperative, disheveled - EENT Eyes: EOMI, PERRLA Ears: bilateral: normal - Neck Carotids: bilateral: upstroke normal Thyroid: bilateral: normal size - Respiratory Respiratory: bilateral: CTA - Cardiovascular Rhythm: regular Heart sounds: normal: S1, S2 - Gastrointestinal General gastrointestinal: soft - Neurologic Neurologic: CNII-XII intact - Musculoskeletal Musculoskeletal: gait normal, generalized weakness, strength equal bilaterally - Psychiatric Psychiatric: A&O x's 3, appropriate affect, intact judgment & insight - Labs CBC & Chem 7: 01/29/21 20:45 01/29/21 20:45 Labs: Abnormal Lab Results - Last 24 Hours (Table) 02/01/21 02/01/21 02/02/21 Range/Units 16:40 19:54 06:20 D-Dimer (<0.60) mg/L FEU POC Glucose (mg/dL) 114 H 163 H 103 H (75-99) mg/dL Lactate Dehydrogenase (313-618) U/L 02/02/21 02/02/21 02/02/21 Range/Units 07:36 07:36 11:36 D-Dimer 0.73 H (<0.60) mg/L FEU POC Glucose (mg/dL) 132 H (75-99) mg/dL Lactate Dehydrogenase 757 H (313-618) U/L Microbiology - Last 24 Hours (Table) 01/29/21 20:45 Blood Culture - Preliminary Blood No Growth after 72 hours Assessment and Plan Assessment: Acute hypoxic respiratory failure Presumed covid 19 pneumonia Morbid obesity Plan: Five-day therapeutic trial of IV REMdesivir Continue broad-spectrum antibiotics Deep breathing exercises incentive spirometry Continue to taper oxygen down as tolerated Prone positioning is possible Anticoagulation IV Decadron Further recommendations pending per clinical response of the patient Time with Patient: Greater than 30
== END 2021-02-02 16:06 | disposition home or self-care (01) | DRG 177 ==
LOC: EC 18:48 → 3SCARD 22:23
PROVIDERS: ADMIT Hospitalist; ATTEND Hospitalist
PROC: XW033E5 Introduction of Remdesivir Anti-infective into Peripheral Vein, Percutaneous Approach, New Technology Group 5 (ICD-10-PCS; principal; 2021-02-02)
DX: U07.1 COVID-19 (principal); J12.82 Pneumonia due to coronavirus disease 2019; J96.01 Acute respiratory failure with hypoxia; Z68.41 Body mass index [BMI] 40.0-44.9, adult; K21.9 Gastro-esophageal reflux disease without esophagitis; E66.01 Morbid (severe) obesity due to excess calories; Z91.013 Allergy to seafood; Z79.899 Other long term (current) drug therapy
CPT/HCPCS: 36415; 71046; 80053; 83605; 83615; 84145; 84484; 85025; 85379; 85610; 85730; 86140; 87040; 87502; 87635; 93005; 94640; 94760; 96361; 96374; 99285

== ENCOUNTER → 2021-03-09 | Outpatient (CLI) | payer BC ==
--- NOTE | 2021-03-10 06:21 | XR ---
EXAMINATION TYPE: XR chest 2V DATE OF EXAM: 03/09/2021 COMPARISON: Chest x-ray January 29, 2021 HISTORY: Covid pneumonia TECHNIQUE: Frontal and lateral views of the chest are obtained. FINDINGS: There is improved aeration in bilateral multifocal opacities. Stable low lung volumes. Th e cardiac silhouette size remains within normal limits. The osseous structures are intact. IMPRESSION: Resolving bilateral multifocal opacities.
== END | disposition home or self-care (01) ==
LOC: RADXRMAIN 15:51
PROVIDERS: ATTEND Internal Medicine Sleep Medicine
DX: U07.1 COVID-19 (principal); J12.82 Pneumonia due to coronavirus disease 2019
CPT/HCPCS: 71046